=== PATIENT | female | born 1990 | race Two or more races ===

== ENCOUNTER 2021-12-05 16:53 | Emergency (ER) | payer MEDICAID, OTHER ==
[~2021-12-05] VITALS: Ht 157.5 cm; Wt 77.0 kg
[2021-12-05 17:48] VITALS: BP 119/90
[2021-12-05] MEDS ORDERED: methylPREDNISolone SOD SUCC 125 MG/2 ML VL IM ONE (18:00)
[2021-12-05] MEDS ORDERED: METH4PAK PO (18:11)
== END 2021-12-05 18:30 | disposition home or self-care (01) ==
LOC: ER 16:53
DX: T78.3XXA Angioneurotic edema, initial encounter (principal)
CPT/HCPCS: 96372; 99283; J2930

== ENCOUNTER 2023-03-04 07:30 | Emergency (ER) | payer MEDICAID ==
[~2023-03-04] VITALS: Ht 157.5 cm; Wt 68.9 kg
[~2023-03-04 07:30] MED LIST: METH4PAK PO
[2023-03-04] MEDS ORDERED: ACETAMINOPHEN 500 MG TAB PO ONE (08:00)
[2023-03-04 08:01] VITALS: BP 130/78; PULSE 62; RESP 18; O2SAT 96
[2023-03-04 08:35] VITALS: TEMP 97.6
[2023-03-04] MEDS ORDERED: IBUP-1454 PO (08:43)
[2023-03-04] MEDS ORDERED: AMOX875T3 PO (08:43)
== END 2023-03-04 08:54 | disposition home or self-care (01) ==
LOC: ER 07:30
DX: H66.92 Otitis media, unspecified, left ear (principal); J02.9 Acute pharyngitis, unspecified; Z79.1 Long term (current) use of non-steroidal anti-inflammatories (NSAID); Z79.2 Long term (current) use of antibiotics; Z79.899 Other long term (current) drug therapy